=== PATIENT | male | born 1990 | race Caucasian/White ===

== ENCOUNTER 2024-10-29 10:14 | Emergency (ER) | payer OTHER, SELFPAY ==
[2024-10-29 10:16] VITALS: BP 148/100; PULSE 86; TEMP 36.5; O2SAT 99; BMI 28.5
--- NOTE | 2024-10-29 10:31 | ED.GENADUL1 ---
HPI HPI - General Adult General Chief complaint: Extremity Problem, Nontraumatic Stated complaint: LOWER EXTREMITY PAINS Time Seen by Provider: 10/29/24 10:27 Source: patient Mode of arrival: walk-in Limitations: no limitations History of Present Illness HPI narrative: 34-year-old male presents for right-sided moderate testicular pain which began yesterday and was not precipitated by any trauma. The pain seems to wax and wane. No dysuria or hematuria. No symptoms on the left side. He has never had anything like this previously. Related Data Home Medications ?Medication ?Instructions ?Recorded ?Confirmed loratadine 10 mg tablet (Claritin) 10 mg PO DAILY 10/29/24 10/29/24 Allergies Allergy/AdvReac Type Severity Reaction Status Date / Time No Known Drug Allergies Allergy Verified 10/29/24 10:21 Review of Systems ROS Narrative A ten point review of systems is negative except as noted above. PFSH PFSH Social History Little interest or pleasure in doing things: not at all Feeling down, depressed, or hopeless: not at all Exam Narrative Exam Narrative: Nurses note and vital signs reviewed and patient is not hypoxic. General: The patient appears well and in no apparent distress. Patient is resting comfortably on cart. Skin: Warm, dry, no pallor noted. There is no rash noted. Head: Normocephalic, atraumatic Eye: Normal conjunctiva, no drainage Ears, Nose, Mouth, and Throat: oral mucosa is moist. Nares patent. Cardiovascular: Regular Rate and Rhythm Respiratory: Patient is in no distress, no accessory muscle use Back: non-tender GI: Soft and nontender : Left testicle is not enlarged and there is no left sided scrotal tenderness. The right testicle also does not seem to be enlarged and he has mild discomfort on palpation. There are no masses. No inguinal adenopathy or tenderness. Musculoskeletal: The patient has no evidence of calf tenderness, no pitting edema, symmetrical pulses noted bilaterally Neurological: A&O, normal speech Psychiatric: Cooperative Constitutional Vital Signs, click to edit/add: Last Vital Signs Temp 97.7 F 10/29/24 10:16 Pulse 86 10/29/24 10:16 Resp 18 10/29/24 10:16 BP 148/100 H 10/29/24 10:16 Pulse Ox 99 10/29/24 10:16 Course Vital Signs Vital signs: Vital Signs Temperature 97.7 F 10/29/24 10:16 Pulse Rate 86 10/29/24 10:16 Respiratory Rate 18 10/29/24 10:16 Blood Pressure 148/100 H 10/29/24 10:16 Pulse Oximetry 99 10/29/24 10:16 Temperature 97.7 F 10/29/24 10:16 Pulse Rate 86 10/29/24 10:16 Respiratory Rate 18 10/29/24 10:16 Blood Pressure 148/100 H 10/29/24 10:16 Pulse Oximetry 99 10/29/24 10:16 Medical Decision Making MDM Narrative Medical decision making narrative: Small right hydrocele is found in addition to a small to medium size right varicocele. He will be referred to urology for follow-up and was recommended ibuprofen. Treatment diagnosis and follow-up were discussed with the patient. Differential Diagnosis Differential Diagnosis: Testicular torsion, epididymitis, orchitis, hydrocele Lab Data Lab results reviewed: Yes I reviewed the patient's lab results Labs: Lab Results 10/29/24 Range/Units 11:50 Urine Color Yellow (YELLOW) Urine Clarity Clear (CLEAR) Urine pH 7.0 (5.0-9.0) Ur Specific [place] 1.010 (1.005-1.025) Urine Protein Negative (NEG/TRACE) mg/dL Urine Glucose (UA) Negative (NEGATIVE) mg/dL Urine Ketones Negative (NEGATIVE) mg/dL Urine Occult Blood Negative (NEGATIVE) Urine Nitrite Negative (NEGATIVE) Urine Bilirubin Negative (NEGATIVE) Urine Urobilinogen 0.2 (0.2-1.0) EU/dL Ur Leukocyte Esterase Negative (NEGATIVE) Urine RBC None seen (0-2) #/HPF Urine WBC 0-2 A (NONE SEEN) #/HPF Ur Squamous Epith Cells Rare (NONE/RARE) #/LPF Urine Crystals None seen (None Seen) #/HPF Urine Bacteria None seen (NONE SEEN) #/HPF Urine Casts None seen (NONE SEEN) #/LPF Urine Mucus Trace A (NONE SEEN) Imaging Data Scrotal ultrasound: Radiologist's impression: Small right hydrocele, small to medium size right varicocele, no intratesticular mass, no testicular torsion, no features of orchitis or epididymitis, no abscess or hematoma Discharge Plan Discharge Chief Complaint: Extremity Problem, Nontraumatic Clinical Impression: Hydrocele Patient Disposition: Home, Self-Care Time of Disposition Decision: 12:51 Condition: Good Mode of Transportation: Private Vehicle Prescriptions / Home Meds: No Action loratadine [Claritin] 10 mg tablet 10 mg PO DAILY Print Language: Egyptian Instructions: Testicle Pain (ED) Referrals: Anna Molina MD [Primary Care Provider, Family Practice] - 1 week
[2024-10-29 11:57] LABS: Bilirubin Urine NEGATIVE (NEGATIVE); Blood Urine NEGATIVE (NEGATIVE); Clarity Urine CLEAR (CLEAR); Color Urine YELLOW (YELLOW); Glucose Urine UA NEGATIVE (NEGATIVE); Ketones Urine NEGATIVE (NEGATIVE); Leukocyte Esterase Urine NEGATIVE (NEGATIVE); Nitrite Urine NEGATIVE (NEGATIVE); Protein Urine NEGATIVE (NEG/TRACE); Urobilinogen Urine 0.2 EU/dL (0.2-1.0)
[2024-10-29 12:04] LABS: Bacteria Urine NONE SEEN #/HPF (NONE SEEN); Cast Seen? NONE SEEN #/LPF (NONE SEEN); Crystals Seen? None Seen #/HPF (None Seen); Mucus Urine TRACE (NONE SEEN); RBC Urine NONE SEEN #/HPF (0-2); Squamous Epithelial Cell Urine RARE #/LPF (NONE/RARE); WBC Urine 0-2 #/HPF (NONE SEEN)
== END 2024-10-29 13:00 | disposition home or self-care (01) ==
PROVIDERS: Emergency Provider Emergency Medicine; PCP Family Medicine
DX: N43.3 Hydrocele, unspecified (principal); I86.1 Scrotal varices
CPT/HCPCS: 76870; 81001; 93976; 99284